=== PATIENT | female | born 1940 | race Caucasian/White ===

== ENCOUNTER 2024-08-04 18:29 | Inpatient (IN) | payer MEDICARE, OTHER ==
[~2024-08-04] VITALS: Ht 167.6 cm; Wt 70.4 kg
[2024-08-04 19:27] VITALS: BP 138/84; PULSE 91; RESP 16; TEMP 98.7; O2SAT 94
--- NOTE | 2024-08-04 20:03 | ED.PDOC ---
History of Present Illness HPI Comments 83 year old female brought in by daughter presents to the ED with a chief complaint of confusion. Daughter states patient has been experiencing confusion, is altered. Daughter states patient has not been diagnosed with Dementia or Alzheimer's and would like patient to be admitted to the hospital. Patient sta larissa "she needs help." Denies any PMHx as well as chest pain, shortness of breath, abdominal pain, nausea, vomiting, diarrhea, headache, dysuria, hematuria. No other symptoms or modifying factors present at this time. Chief Complaint: Confusion Time Seen by MD: 19:50 Reviewed Notes: Medications, Allergies Allergies: Coded Allergies: Penicillins (Verified Allergy, Severe, 08/04/24) Information Source: Patient, Relative Mode of Arrival: Wheelchair Severity: Moderate Timing: Days Duration: Since onset Prehospital treatment: None Past Medical History PAST MEDICAL HISTORY: Denies Surgical History: Denies all surgeries PATIENT REGISTRATION SPECIALIST History: No Pertinent PATIENT REGISTRATION SPECIALIST History Family History Family History: Reviewed,noncontributory to illness, No family hx of Cancer, No family hx of DM, No family hx of Heart toribio, No family hx of HTN, No family hx ofKidney toribio, No family hx of Liver toribio, No family hx of Lung toribio, No family hx of Stroke Social History Smoker: Non-Smoker Alcohol: Denies ETOH Use Drugs: Denies Drug Use Lives In: Home Constitutional: denies: chills, diaphoresis, fatigue, fever, malaise, sweats, weakness, others EENTM: denies: blurred vision, double vision, ear bleeding, ear discharge, ear drainage, ear pain, ear ringing, eye pain, eye redness, hearing loss, mouth pain, mouth swelling, nasal discharge, nose bleeding, nose congestion, nose pain, photophobia, tearing, throat pain, throat swelling, voice changes, others Respiratory: denies: cough, hemoptysis, orthopnea, SOB at rest, shortness of breath, SOB with excertion, stridor, wheezing, others Cardiovascular: denies: chest pain, dizzy spells, diaphoresis, Dyspnea on exertion, edema, irregular heart beat, left arm pain, lightheadedness, palpitations, PND, syncope, others Gastrointestinal: denies: abdomen distended, abdominal pain, blood streaked bowels, constipated, diarrhea, dysphagia, difficulty swallowing, hematemesis, melena, nausea, poor appetite, poor fluid intake, rectal bleeding, rectal pain, vomiting, others Genitourinary: denies: abnormal vagina bleeding, burning, dyspareunia, dysuria, flank pain, frequency, hematuria, incontinence, pain, , vagina discharge, urgency, others Neurological: denies: dizziness, fainting, headache, left sided numbness, left sided weakness, numbness, paresthesia, pre-existing deficit, right sided numbness, right sided weakness, seizure, speech problems, tingling, tremors, weakness, others Musculoskeletal: denies: back pain, gout, joint pain, joint swelling, muscle pain, muscle stiffness, neck pain, others Integumetry: denies: bruises, change in color, change in hair/nails, dryness, laceration, lesions, lumps, rash, wounds, others Allergic/Immunocompromised: denies: Difficulty Healing, Frequent Infections, Hives, Itching, others Hematologic/Lymphatic: denies: anemia, blood clots, easy bleeding, easy bruising, swollen glands, others Endocrine: denies: excessive hunger, excessive sweating, excessive thirst, excessive urination, flushing, intolerance to cold, intolerance to heat, unexplained weight gain, unexplained weight loss, others Psychiatric: reports: others (confused); denies: anxiety, bipolar disorder, depression, hopeless, panic disorder, schizophrenia, sleepless, suicidal All Other Systems: Reviewed and Negative Physical Exam General Appearance: No Apparent Distress, Normal HEENT: Normal ENT Inspection, Pharynx Normal, TMs Normal Neck: Full Range of Motion, Non-Tender, Normal, Normal Inspection Respiratory: Chest Non-Tender, Lungs Clear, No Accessory Muscle Use, No Respiratory Distress, Normal Breath Sounds Cardiovascular: No Edema, No JVD, No Murmur, No Gallop, Normal Peripheral Pulses, Regular Rate/Rhythm Breast Exam: Deferred Gastrointestinal: No Organomegaly, Non Tender, No Pulsatile Mass, Normal Bowel Sounds, Soft Genitalia: Deferred Pelvic: Deferred Rectal: Deferred Extremities: No calf tenderness, Normal capillary refill, Normal inspection, Normal range of motion, Non-tender, No pedal edema Musculoskeletal : Apperance: Normal Neurologic: Alert, 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 Was a procedure done?: No Differential Dx Considerations may include: ACS, CVA, dementia, viral syndrome, electrolyte abnormality X-Ray, Labs, Meds, VS Vital Signs Date Time Temp Pulse Resp B/P (MAP) Pulse Ox O2 Delivery O2 Flow Rate FiO2 08/04/24 19:27 98.7 91 16 138/84 (102) 94 98.7 Lab Test 08/04/24 21:15 08/04/24 20:20 Range/Units Troponin I High Sensitivity 12 13 </=34 ng/L White Blood Count 9.5 4.4-10.8 10^3/uL Red Blood Count 4.93 4.0-5.20 10^6/uL Hemoglobin 14.5 12.2-16.2 g/dL Hematocrit 42.6 36.0-46.0 % Mean Corpuscular Volume 86.4 80.0-100.0 fL Mean Corpuscular Hemoglobin 29.4 28.0-32.0 pg Mean Corpuscular Hemoglobin Concent 34.0 32.0-36.0 g/dL Red Cell Distribution Width 13.8 11.8-14.3 % Platelet Count 259 140-450 10^3/uL Mean Platelet Volume 6.9 6.9-10.8 fL Neutrophils (%) (Auto) 73.4 37.0-80.0 % Lymphocytes (%) (Auto) 13.5 10.0-50.0 % Monocytes (%) (Auto) 11.0 0.0-12.0 % Eosinophils (%) (Auto) 1.3 0.0-7.0 % Basophils (%) (Auto) 0.8 0.0-2.0 % Neutrophils # (Auto) 7.0 1.6-8.6 10 ^3/uL Lymphocytes # (Auto) 1.3 0.4-5.4 10 ^3/uL Monocytes # (Auto) 1.0 0-1.3 10 ^3/uL Eosinophils # (Auto) 0.1 0-0.8 10 ^3/uL Basophils # (Auto) 0.1 0-0.2 10 ^3/uL Nucleated Red Blood Cells 0.0 % Sodium Level 137 136-145 mmol/L Potassium Level 4.5 3.5-5.1 mmol/L Chloride Level 111 H 98-107 mmol/L Carbon Dioxide Level 23 20-31 mmol/L Anion Gap 3 L 5-15 Blood Urea Nitrogen 20 9-23 mg/dL Creatinine 0.93 0.550-1.02 mg/dL Glomerular Filtration Rate Calc 62 >90 mL/min BUN/Creatinine Ratio 21.5 H 10.0-20.0 Serum Glucose 96 74-106 mg/dL Calcium Level 10.6 H 8.7-10.4 mg/dL [place] [id number] Ph: [phone] DIAGNOSTIC IMAGING Diagnostic Imaging Report : [id number] Signed PATIENT: SIENNA COFFMAN ACCT: [id number] UNIT: [id number] : 1940 LOC: ER ROOM / BED: / AGE / SEX: 83 / F ADM STATUS: REG ER SERVICE 51 ORDERING PHYSICIAN: GEORGE ROLON MD PROCEDURE(s): HWOCT - HEAD WITHOUT CONTRAST REASON: [facility] ORDER NUMBER(s): [id number], ACCESSION NUMBER(s): [id number] EXAM: CT HEAD WITHOUT CONTRAST INDICATION: ams TECHNIQUE: CT of the head without intravenous contrast. Radiation Dose : 1. Head: CT Dose: CTDI volume is 49.27 mGy. Dose-length product is 888.33 mGy*cm The dose indicators for CT are the volume Computed Tomography (CT) Dose Index (CTDIvol) and the Dose Length Product (DLP), and are measured in units of mGy and mGy-cm, respectively. These indicators are not patient dose, but values generated from the CT scanner acquisition factors. The report includes radiation exposure data for exposures received during this examination. COMPARISON: None FINDINGS: There is no evidence of acute intracranial hemorrhage, extra-axial collection, mass effect, midline shift, herniation or hydrocephalus. Chronic microvascular ischemic changes The ventricles, sulci and cisterns are age appropriate. The aranda-white differentiation is intact. Patchy periventricular and subcortical white matter hypoattenuation is nonspecific but may be related to small vessel ischemic disease. The visualized paranasal sinuses and mastoid air cells are clear. The surrounding soft tissues and osseous structures are unremarkable. IMPRESSION: 1. No acute intracranial abnormality. 2. Chronic microvascular ischemic changes Radiation optimization: All CT scans at this facility use at least one of these dose optimization techniques: automated exposure control mA and/or kV adjustment per patient size (includes targeted exams where dose is matched to clinical indication) or iterative reconstruction. ATED BY: PEARL CRESPO MD DICTATED DATE/TIME: 08/04/242026 SIGNED BY: PEARL CRESPO MD SIGNED DATE/TIME: 08/04/242026 CC: [place] [id number] Ph: [phone] DIAGNOSTIC IMAGING Diagnostic Imaging Report : [id number] Signed PATIENT: SIENNA COFFMAN ACCT: [id number] UNIT: [id number] : 1940 LOC: ER ROOM / BED: / AGE / SEX: 83 / F ADM STATUS: REG ER SERVICE 51 ORDERING PHYSICIAN: GEORGE ROLON MD PROCEDURE(s): CXRP - CHEST PORTABLE REASON: ams ORDER NUMBER(s): [id number], ACCESSION NUMBER(s): [id number] CHEST RADIOGRAPH Indication: ams Technique: Single frontal view of the chest was obtained Comparison: None FINDINGS: Lines and Tubes: None Lungs: No focal consolidation. Left basilar hazy opacity. Pleura: No effusion. No pneumothorax. Cardiomediastinal contours: Heart size is within normal limits. Prominence of the aortic knob. Bones: No acute osseous abnormality. IMPRESSION: Left basilar atelectasis. Otherwise, no evidence for acute cardiopulmonary disease. Prominence of the aortic knob which may be from tortuosity with aneurysm not excluded. CT may be considered for further evaluation if clinically indicated. ATED BY: YAMILA CHEN DO DICTATED DATE/TIME: 08/04/242036 SIGNED BY: YAMILA CHEN DO SIGNED DATE/TIME: 08/04/242036 CC: Time of 1ST Reevaluation: 20:20 Reevaluation 1ST: Unchanged Patient Education/Counseling: Diagnosis, Treatment, Prognosis Family Education/Counseling: Diagnosis, Treatment, Prognosis Additional Information The following tests were ordered, and results were reviewed by me: CBC, BMP, TROP -x3, UA, XY CHEST, CT HEAD WO CON Additional Information was gathered from interviewing the following independent historians: daughter I reviewed and agreed with the following test results read by other providers: XY CHEST, CT HEAD WO CON I discussed treatment and results with medical personnel and: patient, daughter Comprehensive systems review obtained and negative except for what is stated in the HPI. Departure 1 Departure Time of Disposition: 21:51 (Patient with a worsening mental status. Initial workup is benign with CBC BNP labs CT scan chest x-ray were benign. We will admit patient for further work) Impression: Primary Impression: Acute metabolic encephalopathy Additional Impression: Generalized weakness Disposition: ADMITTED INPATIENT Admit to: Med Surg Condition: Serious Critical Care Note Critical Care Time?: No Stability Stability form required: No I personally scribed for GEORGE ROLON MD ([email or web address]) on 08/04/24 at 20:03. Electronically submitted by Harleen Sibley ([email or web address]). I personally scribed for GEORGE ROLON MD ([email or web address]) on 08/04/24 at 20:40. Electronically submitted by Harleen Sibley ([email or web address]). I personally scribed for GEORGE ROLON MD ([email or web address]) on 08/04/24 at 21:34. Electronically submitted by Harleen Sibley ([email or web address]). GEORGE ROLON MD Aug 04, 2024 20:03
--- NOTE | 2024-08-04 20:30 | DVH ---
EXAM: CT HEAD WITHOUT CONTRAST INDICATION: ams TECHNIQUE: CT of the head without intravenous contrast. Radiation Dose : 1. Head: CT Dose: CTDI volume is 49.27 mGy. Dose-length product is 888.33 mGy*cm The dose indicators for CT are the volume Computed Tomography (CT) Dose Index (CTDIvol) and the Dose Length Product (DLP), and are measured in units of mGy and mGy-cm, respectively. These indicators are not patient dose, but values generated from the CT scanner acquisition factors. The report includes radiation exposure data for exposures received during this examination. COMPARISON: None FINDINGS: There is no evidence of acute intracranial hemorrhage, extra-axial collection, mass effect, midline s hift, herniation or hydrocephalus. Chronic microvascular ischemic changes The ventricles, sulci and cisterns are age appropriate. The aarnda-white differentiation is intact. Patchy periventricular and subcortical white matter hypoattenuation is nonspecific but may be related to small vessel ischemic disease. The visualized paranasal sinuses and mastoid air cells are clear. The surrounding soft tissues and osseous structures are unremarkable. IMPRESSION: 1. No acute intracranial abnormality. 2. Chronic microvascular ischemic changes Radiation optimization: All CT scans at this facility use at least one of these dose optimization tye hniques: automated exposure control mA and/or kV adjustment per patient size (includes targeted exam s where dose is matched to clinical indication) or iterative reconstruction.
[2024-08-04 20:31] LABS: Basophils # (auto) 0.1 10 ^3/uL (0-0.2); Basophils % (auto) 0.8 % (0.0-2.0); Eosinophils # (auto) 0.1 10 ^3/uL (0-0.8); Eosinophils % (auto) 1.3 % (0.0-7.0); Hematocrit 42.6 % (36.0-46.0); Hemoglobin 14.5 g/dL (12.2-16.2); Lymphocytes # (auto) 1.3 10 ^3/uL (0.4-5.4); Lymphocytes % (auto) 13.5 % (10.0-50.0); Mean Corpuscular Hemoglobin 29.4 pg (28.0-32.0); Mean Corpuscular Volume 86.4 fL (80.0-100.0); Neutrophils % (auto) 73.4 % (37.0-80.0); Platelet Count (auto) 259 10^3/uL (140-450); Red Blood Cells 4.93 10^6/uL (4.0-5.20); Red Cell Distribution Width 13.8 % (11.8-14.3); White Blood Cell 9.5 10^3/uL (4.4-10.8)
[2024-08-04 20:40] LABS: Potassium 4.5 mmol/L (3.5-5.1); Sodium 137 mmol/L (136-145)
--- NOTE | 2024-08-04 20:40 | DVH ---
CHEST RADIOGRAPH Indication: ams Technique: Single frontal view of the chest was obtained Comparison: None FINDINGS: Lines and Tubes: None Lungs: No focal consolidation. Left basilar hazy opacity. Pleura: No effusion. No pneumothorax. Cardiomediastinal contours: Heart size is within normal limits. Prominence of the aortic knob. Bones: No acute osseous abnormality. IMPRESSION: Left basilar atelectasis. Otherwise, no evidence for acute cardiopulmonary disease. Prominence of the aortic knob which may be from tortuosity with aneurysm not excluded. CT may be cons idered for further evaluation if clinically indicated.
[2024-08-04 20:41] LABS: Anion Gap 3 (5-15); Carbon Dioxide 23 mmol/L (20-31)
[2024-08-04 20:46] LABS: BUN/Creatinine Ratio 21.5 (10.0-20.0); Blood Urea Nitrogen 20 mg/dL (9-23); Glucose 96 mg/dL (74-106)
[2024-08-04 21:38] LABS: Calcium 10.6 mg/dL (8.7-10.4); Chloride 111 mmol/L (98-107)
[2024-08-04] MEDS ORDERED: ONDANSETRON HCL 4 MG/2 ML VIAL IV PRN (22:30)
[2024-08-04] MEDS ORDERED: ACETAMINOPHEN 325 MG TAB PO PRN (22:30)
--- NOTE | 2024-08-04 22:32 | DVHHPRES ---
History of Present Illness Resident Creating Document: TANVIR PENDLETON History of Present Illness Debby Amado is a 83-year-old female patient who is brought by her daughter due to five year long confusion and altered mental status which has worsened in the past few days with unintentional self-harm (she went through windowing cut her skin). Daughter reports the patient has not seen a primary care physician for over six years and she never went to a neurologist, wants to admit her to get diagnosis of dementia, spoke with daughter in informed of the normally diagnosis of dementia is done as in the outpatient contacts, in hospitalization we ruled out acute illnesses. Discussed admission to rule out UTI and other acute findings, but daughter wants to leave against medical advice. Due to clinical status, could not obtain review of systems. Past medical history: Chronic back pain Surgical history: Denies Family history: Daughter and mother ovarian, endometrial and colon cancer. Social history: Lives in [place] (moved in approximately eight months ago). Denies current tobacco, alcohol and other drug abuse. Allergies: Penicillin Home medication: Denies Patient seen and examined in ER. No new complaints. Past Medical History Per HPI Past Surgical History Per HPI Family History Per HPI Past Social History Per HPI Review of Systems Review of Systems Per HPI Allergies: Coded Allergies: Penicillins (Verified Allergy, Severe, 08/04/24) Medications Current Medications Medications Dose Ordered Sig/Jeffrey Route Start Time Stop Time Status Last Admin Dose Admin Acetaminophen 650 mg Q6HP PRN PO 08/04/24 22:30 UNV Ondansetron HCl 4 mg Q4HP PRN IV 08/04/24 22:30 UNV Enoxaparin Sodium 40 mg DAILY SC 08/05/24 10:00 UNV Exam Vital Signs Vital Signs Date Time Temp Pulse Resp B/P (MAP) Pulse Ox O2 Delivery O2 Flow Rate FiO2 08/04/24 19:27 98.7 91 16 138/84 (102) 94 98.7 Exam Patient lying in bed, in no acute distress General: Alert, afebrile, mucosae are moist Cardiovascular: Normal S1 and S2. No murmurs, gallops or rubs Respiratory: Normal ventilation mechanics. Clear lung sounds on auscultation Abdomen: Soft, nontender, no organomegaly, normal bowel sounds MSK/skin: Mobilizes 4 limbs. Skin is dry and warm. Presents multiple excoriations in upper arms, with scares blood Neurological: Oriented in 1 spheres (only in person). No motor no sensitive deficits. Pupils are isocoric and reactive Labs/Xrays Labs Test 08/04/24 21:15 08/04/24 20:20 Range/Units Troponin I High Sensitivity 12 </=34 ng/L White Blood Count 9.5 4.4-10.8 10^3/uL Red Blood Count 4.93 4.0-5.20 10^6/uL Hemoglobin 14.5 12.2-16.2 g/dL Hematocrit 42.6 36.0-46.0 % Mean Corpuscular Volume 86.4 80.0-100.0 fL Mean Corpuscular Hemoglobin 29.4 28.0-32.0 pg Mean Corpuscular Hemoglobin Concent 34.0 32.0-36.0 g/dL Red Cell Distribution Width 13.8 11.8-14.3 % Platelet Count 259 140-450 10^3/uL Mean Platelet Volume 6.9 6.9-10.8 fL Neutrophils (%) (Auto) 73.4 37.0-80.0 % Lymphocytes (%) (Auto) 13.5 10.0-50.0 % Monocytes (%) (Auto) 11.0 0.0-12.0 % Eosinophils (%) (Auto) 1.3 0.0-7.0 % Basophils (%) (Auto) 0.8 0.0-2.0 % Neutrophils # (Auto) 7.0 1.6-8.6 10 ^3/uL Lymphocytes # (Auto) 1.3 0.4-5.4 10 ^3/uL Monocytes # (Auto) 1.0 0-1.3 10 ^3/uL Eosinophils # (Auto) 0.1 0-0.8 10 ^3/uL Basophils # (Auto) 0.1 0-0.2 10 ^3/uL Nucleated Red Blood Cells 0.0 % Sodium Level 137 136-145 mmol/L Potassium Level 4.5 3.5-5.1 mmol/L Chloride Level 111 H 98-107 mmol/L Carbon Dioxide Level 23 20-31 mmol/L Anion Gap 3 L 5-15 Blood Urea Nitrogen 20 9-23 mg/dL Creatinine 0.93 0.550-1.02 mg/dL Glomerular Filtration Rate Calc 62 >90 mL/min BUN/Creatinine Ratio 21.5 H 10.0-20.0 Serum Glucose 96 74-106 mg/dL Calcium Level 10.6 H 8.7-10.4 mg/dL Assessment/Plan Assessment/Plan Assessment: Metabolic encephalopathy Rule out UTI Probable dementia Plan: Completed head CT which ruled out intracranial pathology, has chronic vascular changes. Consult neurology. Consult executive secretary social welfare for home safety We will admit to telemetry to CVA is ruled out. Ordered UA to evaluate UTI. Goals of care discussed with daughter for over18 minutes: Full code status Discussed plan with Dr. Love, patient, family and nurses: We will admit to hospital to rule out acute causes of metabolic encephalopathy, and rule out stroke. Consulted Neurology and executive secretary social welfare. Plan discussed with: Patient, Daughter, Other (Nurses) My Orders Orders - TANVIR PENDLETON RESIDENT Procedure Category Date Status Time Admit ADMIT 08/04/24 Transmitted 22:17 Code Status CODE 08/04/24 Transmitted 22:17 Vital Signs MICHAEL 08/04/24 In Process 22:17 Review Orders With [facility] 08/04/24 In Process Adm. 22:17 Npo (Nothing By DIET 08/05/24 Transmitted Mouth) Diet Breakfast Acetaminophen Tablet PHA 08/04/24 Logged (Tylenol Tablet) 22:30 Notify Of Changes MICHAEL 08/04/24 In Process From Base 22:17 Advance Directive MICHAEL 08/04/24 In Process 22:17 Patient Condition ORDERS 08/04/24 Transmitted 22:17 Allergies MICHAEL 08/04/24 In Process 22:17 Ondansetron Hcl PHA 08/04/24 Logged (Zofran) 22:30 Enoxaparin Sodium PHA 08/05/24 Logged (Lovenox) 10:00 Oxygen By Nasal RT 08/04/24 Transmitted Cannula 22:17 Stat Ekg For Chest MICHAEL 08/04/24 In Process Pain 22:17 Notify Of Changes MICHAEL 08/04/24 In Process From Base 22:17 Surgical Dental Assistant For MICHAEL 08/04/24 In Process 24 Hours 22:17 Emergency Dysrhythmia MICHAEL 08/04/24 In Process Protocol 22:17 Rhythm Strips Once MICHAEL 08/04/24 In Process Every Shift 22:17 Vitamin D, 25-Hydroxy LAB 08/04/24 Logged 22:17 Vitamin B12 LAB 08/04/24 Logged 22:17 Urinalysis LAB 08/04/24 Logged 22:17 Thyroid Stimulating LAB 08/04/24 Logged Hormone 22:17 PTPTT LAB 08/04/24 In Process 22:17 Phosphorus LAB 08/04/24 Logged 22:17 Magnesium LAB 08/04/24 Logged 22:17 Lactic Acid W/ Reflex LAB 08/04/24 Logged Order 22:17 Hemoglobin A1c LAB 08/04/24 Logged 22:17 Drug Screen LAB 08/04/24 Logged 22:17 Ammonia LAB 08/04/24 Logged 22:17 Complete Blood Count LAB 08/05/24 Verified 04:00 Basic Metabolic Panel LAB 08/05/24 Verified 04:00 Hepatic Panel LAB 08/04/24 In Process 22:17 Date of Service: Aug 04, 2024 Billing Provider: ERLIN LOVE MD Common Visit Codes: [id number] INP/OBS CARE (HIGH) TANVIR PENDLETON RESIDENT Aug 04, 2024 22:32
[2024-08-04 22:53] LABS: Magnesium 2.3 mg/dL (1.6-2.6)
[2024-08-04 22:54] LABS: Alanine Aminotransferase 11 U/L (7-40); Albumin 4.6 g/dL (3.2-4.8); Alkaline Phosphatase 113 U/L (46-116); Aspartate Aminotransferase 17 U/L (13-40); Phosphorus 3.5 mg/dL (2.4-5.1); Total Protein 7.2 g/dL (5.7-8.2)
[2024-08-04 22:56] LABS: INR 0.97 (0.9-1.15); Partial Thromboplastin Time 29.9 SEC (24.5-34.5); Prothrombin Time 10.3 sec (9.3-11.8)
[2024-08-04 23:02] LABS: Bilirubin, Direct < 0.1 mg/dL (<0.3); Bilirubin, Total < 0.2 mg/dL (0.2-1.0)
--- NOTE | 2024-08-04 23:29 | DVHDSRES ---
Discharge Summary Date of Admission Resident Creating Document: TANVIR PENDLETON RESIDENT Aug 04, 2024 at 22:17 Date of Discharge: Aug 04, 2024 Labs/Diagnostic Data: Laboratory Results Test 08/04/24 21:15 08/04/24 20:20 Troponin I High Sensitivity 12 ng/L (</=34) White Blood Count 9.5 10^3/uL (4.4-10.8) Red Blood Count 4.93 10^6/uL (4.0-5.20) Hemoglobin 14.5 g/dL (12.2-16.2) Hematocrit 42.6 % (36.0-46.0) Mean Corpuscular Volume 86.4 fL (80.0-100.0) Mean Corpuscular Hemoglobin 29.4 pg (28.0-32.0) Mean Corpuscular Hemoglobin Concent 34.0 g/dL (32.0-36.0) Red Cell Distribution Width 13.8 % (11.8-14.3) Platelet Count 259 10^3/uL (140-450) Mean Platelet Volume 6.9 fL (6.9-10.8) Neutrophils (%) (Auto) 73.4 % (37.0-80.0) Lymphocytes (%) (Auto) 13.5 % (10.0-50.0) Monocytes (%) (Auto) 11.0 % (0.0-12.0) Eosinophils (%) (Auto) 1.3 % (0.0-7.0) Basophils (%) (Auto) 0.8 % (0.0-2.0) Neutrophils # (Auto) 7.0 10 ^3/uL (1.6-8.6) Lymphocytes # (Auto) 1.3 10 ^3/uL (0.4-5.4) Monocytes # (Auto) 1.0 10 ^3/uL (0-1.3) Eosinophils # (Auto) 0.1 10 ^3/uL (0-0.8) Basophils # (Auto) 0.1 10 ^3/uL (0-0.2) Nucleated Red Blood Cells 0.0 % Prothrombin Time 10.3 sec (9.3-11.8) Prothrombin Time INR 0.97 (0.9-1.15) Activated Partial Thromboplast Time 29.9 SEC (24.5-34.5) Sodium Level 137 mmol/L (136-145) Potassium Level 4.5 mmol/L (3.5-5.1) Chloride Level 111 mmol/L (98-107) Carbon Dioxide Level 23 mmol/L (20-31) Anion Gap 3 (5-15) Blood Urea Nitrogen 20 mg/dL (9-23) Creatinine 0.93 mg/dL (0.550-1.02) Glomerular Filtration Rate Calc 62 mL/min (>90) BUN/Creatinine Ratio 21.5 (10.0-20.0) Serum Glucose 96 mg/dL (74-106) Hemoglobin A1c 5.2 % A1C (<5.7) Lactic Acid Level 0.9 mmol/L (0.4-2.0) Calcium Level 10.6 mg/dL (8.7-10.4) Phosphorus Level 3.5 mg/dL (2.4-5.1) Magnesium Level 2.3 mg/dL (1.6-2.6) Total Bilirubin < 0.2 mg/dL (0.2-1.0) Direct Bilirubin < 0.1 mg/dL (<0.3) Aspartate Amino Transferase (AST) 17 U/L (13-40) Alanine Aminotransferase (ALT) 11 U/L (7-40) Alkaline Phosphatase 113 U/L (46-116) Total Protein 7.2 g/dL (5.7-8.2) Albumin 4.6 g/dL (3.2-4.8) Vitamin B12 Level 809 pg/mL (211-911) Thyroid Stimulating Hormone (TSH) 1.57 uIU/mL (0.55-4.78) Other Laboratory Tests 08/04/24 20:20 Brief Hx & Hospital Course: Debby Amado is a 83-year-old female patient who is brought by her daughter due to five year long confusion and altered mental status which has worsened in the past few days with unintentional self-harm (she went through windowing cut her skin). Daughter reports the patient has not seen a primary care physician for over six years and she never went to a neurologist, wants to admit her to get diagnosis of dementia, spoke with daughter in informed of the normally diagnosis of dementia is done as in the outpatient contacts, in hospitalization we ruled out acute illnesses. Discussed admission to rule out UTI and other acute findings, but daughter wants to leave against medical advice. Due to clinical status, could not obtain review of systems. Past medical history: Chronic back pain Surgical history: Denies Family history: Daughter and mother ovarian, endometrial and colon cancer. Social history: Lives in [place] (moved in approximately eight months ago). Denies current tobacco, alcohol and other drug abuse. Allergies: Penicillin Home medication: Denies Brief hospital course: Metabolic encephalopathy, with head CT which ruled out acute intracranial pathology (does have chronic changes), planning on ruling out UTI and neurological evaluation. Patient's daughter wanted to admit patient to obtain diagnosis of dementia, have explained the this diagnosis is done as an outpatient setting, during hospitalization we ruled out acute illnesses. Daughter decided to sign against medical advice form (she made patient sign it, she did not want to sign) since she only wanted diagnosis of dementia. She said that she will take patient to PCP and neurologist as outpatient. Could not complete workup to rule out acute metabolic encephalopathy. Pending neurological and social sciences research scientist evaluation. Patient hemodynamically stable, only oriented in person, daughter decided to leave against medical advice. Could not complete workup to rule out acute illnesses. DIAGNOSIS Metabolic encephalopathy Rule out UTI Probable dementia Goals of care discussed with daughter for over18 minutes: Full code status Discussed plan with Dr. Love, patient, family and nurses Operations or Procedures ORDERING PHYSICIAN: GEORGE ROLON MD PROCEDURE(s): CXRP - CHEST PORTABLE REASON: [facility] ORDER NUMBER(s): [id number], ACCESSION NUMBER(s): [id number] CHEST RADIOGRAPH Indication: ams Technique: Single frontal view of the chest was obtained Comparison: None FINDINGS: Lines and Tubes: None Lungs: No focal consolidation. Left basilar hazy opacity. Pleura: No effusion. No pneumothorax. Cardiomediastinal contours: Heart size is within normal limits. Prominence of the aortic knob. Bones: No acute osseous abnormality. IMPRESSION: Left basilar atelectasis. Otherwise, no evidence for acute cardiopulmonary disease. Prominence of the aortic knob which may be from tortuosity with aneurysm not excluded. CT may be considered for further evaluation if clinically indicated. ATED BY: YAMILA CHEN DO DICTATED DATE/TIME: 08/04/242036 EXAM: CT HEAD WITHOUT CONTRAST INDICATION: ams TECHNIQUE: CT of the head without intravenous contrast. Radiation Dose : 1. Head: CT Dose: CTDI volume is 49.27 mGy. Dose-length product is 888.33 mGy*cm The dose indicators for CT are the volume Computed Tomography (CT) Dose Index (CTDIvol) and the Dose Length Product (DLP), and are measured in units of mGy and mGy-cm, respectively. These indicators are not patient dose, but values generated from the CT scanner acquisition factors. The report includes radiation exposure data for exposures received during this examination. COMPARISON: None FINDINGS: There is no evidence of acute intracranial hemorrhage, extra-axial collection, mass effect, midline shift, herniation or hydrocephalus. Chronic microvascular ischemic changes The ventricles, sulci and cisterns are age appropriate. The aranda-white differentiation is intact. Patchy periventricular and subcortical white matter hypoattenuation is nonspecific but may be related to small vessel ischemic disease. The visualized paranasal sinuses and mastoid air cells are clear. The surrounding soft tissues and osseous structures are unremarkable. IMPRESSION: 1. No acute intracranial abnormality. 2. Chronic microvascular ischemic changes Radiation optimization: All CT scans at this facility use at least one of these dose optimization techniques: automated exposure control mA and/or kV adjustment per patient size (includes targeted exams where dose is matched to clinical indication) or iterative reconstruction. ATED BY: PEARL CRESPO MD DICTATED DATE/TIME: 08/04/242026 Condition at Discharge: Undetermined Final Diagnosis/Problems List Metabolic encephalopathy Rule out UTI Probable dementia Discharge Disposition: AMA SNF Discharge Will this Physician continue t: No Discharge Statement: "Patient was advised to return to the ER or call 911 if any headaches, dizziness, shortness of breath, chest pain, abdominal pain, bleeding, fevers, or worsening of medical condition. Patient was counseled about treatment plan, medications, possible side effects, patientverbalized understanding. All questions were answered to the best of my ability. This discharge took greater then 30 minutes in planning, reviewing documentation, counseling the patient, and discussing with other team members." ASSESSMENT ASSESSMENT Assessment Date of Service: Aug 02, 2024 Billing Provider: ERLIN LOVE MD Common Visit Codes: 54933-ERH/OBS DISCH DAY <30MIN TANVIR PENDLETON RESIDENT Aug 04, 2024 23:29 ERLIN LOVE MD August 06, 2024 17:37
[2024-08-05] MEDS ORDERED: ENOXAPARIN SOD 40 MG/0.4 ML SYRINGE SC SCH (10:00)
== END 2024-08-04 23:00 | disposition left against medical advice (07) | DRG 689 ==
LOC: ER 18:39 → OVERFLOW 22:17
PROVIDERS: ADMIT Internal Medicine; ATTEND Internal Medicine
DX: N39.0 Urinary tract infection, site not specified (principal); G93.41 Metabolic encephalopathy; Z53.29 Procedure and treatment not carried out because of patient's decision for other reasons; F03.90 Unspecified dementia, unspecified severity, without behavioral disturbance, psychotic disturbance, mood disturbance, and anxiety; Z88.0 Allergy status to penicillin; Z79.899 Other long term (current) drug therapy
CPT/HCPCS: 36415; 70450; 71045; 80048; 80076; 82140; 82306; 82607; 83036; 83605; 83735; 84100; 84443; 84484; 85025; 85610; 85730; G0378

== ENCOUNTER 2024-10-19 11:34 | Emergency (ER) | payer MEDICARE ==
[~2024-10-19] VITALS: Ht 167.6 cm; Wt 50.0 kg
--- NOTE | 2024-10-19 14:25 | ED.PDOC ---
Musculoskeletal HPI Comments 83 year old Right Hand dominant female with a Hx of Alzheimer's was BIB Daughter for the c/c of a possible Left Forearm Fracture. Daughter states that they were out looking at houses at approx 11 this am, when she noticed that her mother had a noticeable swelling to her left forearm. Denies pain No therapies tried. Denies fevers chills night sweats nausea vomiting redness around the shoulder Denies previous surgeries to the arm or significant injury Denies changes, shortness of breath Chief Complaint: Upper Extremity Time Seen by MD: 14:18 Reviewed Notes: Nurses Notes, Medications, Allergies Allergies: Coded Allergies: Penicillins (Verified Allergy, Severe, 08/04/24) Information Source: Patient Mode of Arrival: Ambulatory Location: Left Extremity Location: Arm Timing: Hours Prehospital treatment: None Severity: Moderate Able to Move Extremity: Yes Bear Weight: Limited Pain: Moderate Hand Dominance: Right Mechanism: Spontaneous Circumstances: Spontaneous Onset of Symptoms: After Trauma Symptoms: Swelling, Pain, Erythema DVT Risk Factors: NONE Associated signs and symptoms: Arm pain Past Medical History PAST MEDICAL HISTORY: Alzheimer Surgical History: Denies all surgeries RHINOLOGIST History: No Pertinent RHINOLOGIST History Family History Family History: Reviewed,noncontributory to illness, No family hx of Cancer, No family hx of DM, No family hx of Heart toribio, No family hx of HTN, No family hx ofKidney toribio, No family hx of Liver toribio, No family hx of Lung toribio, No family hx of Stroke Social History Smoker: Non-Smoker Alcohol: Denies ETOH Use Drugs: Denies Drug Use Lives In: Home Constitutional: denies: chills, diaphoresis, fatigue, fever, malaise, sweats, weakness, others EENTM: denies: blurred vision, double vision, ear bleeding, ear discharge, ear drainage, ear pain, ear ringing, eye pain, eye redness, hearing loss, mouth pain, mouth swelling, nasal discharge, nose bleeding, nose congestion, nose nazia n, photophobia, tearing, throat pain, throat swelling, voice changes, others Respiratory: denies: cough, hemoptysis, orthopnea, SOB at rest, shortness of breath, SOB with excertion, stridor, wheezing, others Cardiovascular: denies: chest pain, dizzy spells, diaphoresis, Dyspnea on exertion, edema, irregular heart beat, left arm pain, lightheadedness, palpitations, PND, syncope, others Gastrointestinal: denies: abdomen distended, abdominal pain, blood streaked bowels, constipated, diarrhea, dysphagia, difficulty swallowing, hematemesis, melena, nausea, poor appetite, poor fluid intake, rectal bleeding, rectal pain, vomiting, others Genitourinary: denies: abnormal vagina bleeding, burning, dyspareunia, dysuria, flank pain, frequency, hematuria, incontinence, pain, , vagina discharge, urgency, others Neurological: denies: dizziness, fainting, headache, left sided numbness, left sided weakness, numbness, paresthesia, pre-existing deficit, right sided numbness, right sided weakness, seizure, speech problems, tingling, tremors, weakness, others Musculoskeletal: reports: others (See HPI); denies: back pain, gout, joint pain, joint swelling, muscle pain, muscle stiffness, neck pain Integumetry: denies: bruises, change in color, change in hair/nails, dryness, laceration, lesions, lumps, rash, wounds, others Allergic/Immunocompromised: denies: Difficulty Healing, Frequent Infections, Hives, Itching, others Hematologic/Lymphatic: denies: anemia, blood clots, easy bleeding, easy bruising, swollen glands, others Endocrine: denies: excessive hunger, excessive sweating, excessive thirst, excessive urination, flushing, intolerance to cold, intolerance to heat, unexplained weight gain, unexplained weight loss, others Psychiatric: denies: anxiety, bipolar disorder, depression, hopeless, panic disorder, schizophrenia, sleepless, suicidal, others All Other Systems: Reviewed and Negative Physical Exam General Appearance: Mild Distress, Normal HEENT: Normal ENT Inspection, Pharynx Normal, TMs Normal Neck: Full Range of Motion, Non-Tender, Normal, Normal Inspection Respiratory: Chest Non-Tender, Lungs Clear, No Respiratory Distress, Normal Breath Sounds Cardiovascular: No JVD, No Murmur, No Gallop, Normal Peripheral Pulses Breast Exam: Deferred Gastrointestinal: Non Tender, No Pulsatile Mass, Normal Bowel Sounds, Soft Genitalia: Deferred Pelvic: Deferred Rectal: Deferred Extremities: No calf tenderness, No pedal edema Musculoskeletal : Location: Left Extremity Location: Arm (Abnormaility with localized TTP and Swelling to the Left Forearm, Neuro vascular senstation intact) Apperance: Normal Neurologic: Alert, No Motor Deficits, Normal Mood Cerebellar Function: Normal Reflexes: Normal Skin: Dry, Pallor, Warm Lymphatic: No Adenopathy Was a procedure done? Was a procedure done?: No Differential Diagnosis EXT Differential Diagnosis: Cellulitis, Fracture, Sprain, Dislocation, Contusion, Neurovascular injury X-Ray, Labs, Meds, VS Vital Signs Date Time Temp Pulse Resp B/P (MAP) Pulse Ox O2 Delivery O2 Flow Rate FiO2 10/19/24 17:55 98.2 100 16 127/76 (93) 98 98.2 10/19/24 17:28 98.1 10/19/24 15:12 85 16 98 Room Air 10/19/24 15:12 98.7 85 16 114/79 (91) 96 98.7 10/19/24 12:25 98.7 88 18 129/84 (99) 96 98.7 Lab Test 10/19/24 16:59 10/19/24 14:10 Range/Units Urine Color Light-yellow Yellow Urine Clarity Clear Clear Urine pH 5.0 5.0-9.0 Urine Specific [place] 1.012 1.001-1.035 Urine Protein Negative Negative Urine Ketones Negative Negative Urine Blood Negative Negative /uL Urine Nitrite Negative Negative Urine Bilirubin Negative Negative Urine Urobilinogen Normal Negative mg/dL Urine Leukocyte Esterase 2+ Negative /uL Urine RBC 1 0 - 4 /hpf Urine Microscopic WBC 7 H 0-5 /HPF Urine Squamous Epithelial Cells Few <5 /hpf Urine Bacteria None seen None Seen /hpf Urine Mucus Few None Seen Urine Glucose Normal Normal mg/dL White Blood Count 9.7 4.4-10.8 10^3/uL Red Blood Count 5.23 H 4.0-5.20 10^6/uL Hemoglobin 15.4 12.2-16.2 g/dL Hematocrit 45.5 36.0-46.0 % Mean Corpuscular Volume 87.0 80.0-100.0 fL Mean Corpuscular Hemoglobin 29.5 28.0-32.0 pg Mean Corpuscular Hemoglobin Concent 33.9 32.0-36.0 g/dL Red Cell Distribution Width 14.0 11.8-14.3 % Platelet Count 255 140-450 10^3/uL Mean Platelet Volume 7.2 6.9-10.8 fL Neutrophils (%) (Auto) 71.1 37.0-80.0 % Lymphocytes (%) (Auto) 17.2 10.0-50.0 % Monocytes (%) (Auto) 10.3 0.0-12.0 % Eosinophils (%) (Auto) 0.8 0.0-7.0 % Basophils (%) (Auto) 0.6 0.0-2.0 % Neutrophils # (Auto) 6.9 1.6-8.6 10 ^3/uL Lymphocytes # (Auto) 1.7 0.4-5.4 10 ^3/uL Monocytes # (Auto) 1.0 0-1.3 10 ^3/uL Eosinophils # (Auto) 0.1 0-0.8 10 ^3/uL Basophils # (Auto) 0.1 0-0.2 10 ^3/uL Nucleated Red Blood Cells 0.0 % Sodium Level 138 136-145 mmol/L Potassium Level 4.0 3.5-5.1 mmol/L Chloride Level 106 98-107 mmol/L Carbon Dioxide Level 25 20-31 mmol/L Anion Gap 7 5-15 Blood Urea Nitrogen 20 9-23 mg/dL Creatinine 0.94 0.550-1.02 mg/dL Glomerular Filtration Rate Calc 61 >90 mL/min BUN/Creatinine Ratio 21.3 H 10.0-20.0 Serum Glucose 90 74-106 mg/dL Calcium Level 11.4 H 8.7-10.4 mg/dL Current Medications Medications (Trade) Dose Ordered Sig/Jeffrey Route Start Time Stop Time Status Last Admin Acetaminophen (Tylenol Tablet) 650 mg ONCE ONCE PO 10/19/24 14:15 10/19/24 14:16 DC 10/19/24 15:34 X-Ray, Labs, Meds, VS Comment 83 year old Right Hand dominant female with a Hx of Alzheimer's was BIB Daughter for the c/c of a possible Left Forearm Fracture. Patient arrives alert and oriented, ABC's intact, afebrile, vital signs stable, saturating well in room air Urinalysis was ordered to rule out UTI or hematuria. Left arm X-Ray Ordered: Diagnostic imaging ordered by me and results interpreted by radiology :FINDINGS/IMPRESSION:There is no evidence of acute fracture or dislocation.The visualized joint space is well maintained.The alignment is anatomical.There is no radiopaque foreign body. Patient was given:Tylenol PO_. Tolerated medications with no adverse reaction On reevaluation, patient had symptomatic improvement. Patient is stable for discharge at this time. Advised the hematomas should gradually reabsorb with a an 7-10 days. Recommended warm compresses as needed. Tylenol may be given as needed for pain. Daughter verbalized understanding to plan Test results and diagnostic imaging interpreted. All diagnostic findings, discharge care, education and instructions provided Follow-up with PCP in 2 to 3 days Patient verbalized understanding and agreed to treatment plan Vital signs stable, afebrile, no acute distress noted Patient ambulatory with strong steady gait Advised to return precautions for any new or worsening symptoms, return to ER immediately for re-evaluation Patient is aware that the purpose of this visit was for an acute medical emergency requiring emergent stabilization. Chronic conditions, including malignancies have not been ruled out. Patient is instructed to follow up with PCP as directed and discharge instructions for continued care and workup. If unable to arrange follow-up, patient is to return to the emergency department for reassessment. Patient (parent or legal guardian if applicable) was given verbal and written discharge instructions and acknowledges understanding. Additional MDM Review of External, Non-ED records: External records reviewed. Discussion with independent historian (EMS, family) history obtained from the patient/parents (if applicable) at bedside Chronic conditions affecting care: None Social determinants of health affecting care: None Time of 1ST Reevaluation: 14:50 Reevaluation 1ST: Unchanged Patient Education/Counseling: Diagnosis, Treatment Family Education/Counseling: No Family Present Departure 1 Departure Time of Disposition: 17:13 Impression: Primary Impression: Hematoma of left forearm Disposition: 01 HOME / SELF CARE / HOMELESS Condition: Fair Discharged With: Relative Critical Care Note Critical Care Time?: No Stability Stability form required: No Heart Score Heart Score: Heart Score Response (Comments) Value History N/A 0 EKG N/A 0 Age N/A 0 Risk Factors N/A 0 Troponin N/A 0 Total 0 I personally scribed for KEISHA REYES NP ([place]) on 10/19/24 at 14:25. Electronically submitted by Reji Almazan ([email or web address]). I personally scribed for KEISHA REYES NP ([place]) on 10/19/24 at 14:47. Electronically submitted by Reji Almazan ([email or web address]). KEISHA REYES CARPET INSPECTOR Oct 19, 2024 14:25
--- NOTE | 2024-10-19 14:37 | DVH ---
CLINICAL INDICATION: pain; R/o fracture TECHNIQUE: 2 radiographic views of the left forearm were obtained. Comparison: None FINDINGS/IMPRESSION: There is no evidence of acute fracture or dislocation. The visualized joint space is well maintained. The alignment is anatomical. There is no radiopaque foreign body.
[2024-10-19 14:51] LABS: Hematocrit 45.5 % (36.0-46.0); Hemoglobin 15.4 g/dL (12.2-16.2); Mean Corpuscular Hemoglobin 29.5 pg (28.0-32.0); Mean Corpuscular Volume 87.0 fL (80.0-100.0); Nucleated Red Blood Cells % 0.0 %
[2024-10-19 15:01] LABS: Chloride 106 mmol/L (98-107); Potassium 4.0 mmol/L (3.5-5.1); Sodium 138 mmol/L (136-145)
[2024-10-19 15:02] LABS: Anion Gap 7 (5-15); Carbon Dioxide 25 mmol/L (20-31)
[2024-10-19 15:04] LABS: Calcium 11.4 mg/dL (8.7-10.4)
[2024-10-19 15:08] LABS: BUN/Creatinine Ratio 21.3 (10.0-20.0); Blood Urea Nitrogen 20 mg/dL (9-23); Glucose 90 mg/dL (74-106)
[2024-10-19] MEDS: ACETAMINOPHEN 325 MG TAB PO ONE (15:34)
[2024-10-19 17:10] LABS: Urine Protein, UAD Negative (Negative)
[2024-10-19 17:55] VITALS: BP 127/76; PULSE 100; RESP 16; TEMP 98.2; O2SAT 98
== END 2024-10-19 17:56 | disposition home or self-care (01) ==
LOC: ER 11:34
DX: S50.12XA Contusion of left forearm, initial encounter (principal); G30.9 Alzheimer's disease, unspecified; Z88.0 Allergy status to penicillin; X58.XXXA Exposure to other specified factors, initial encounter; Y93.89 Activity, other specified; Y92.89 Other specified places as the place of occurrence of the external cause; Y99.8 Other external cause status
CPT/HCPCS: 36415; 73090; 80048; 81001; 85025